=== PATIENT | male | born 1995 | race Caucasian/White ===

== ENCOUNTER 2021-06-23 21:08 | Emergency (ER) | payer BC ==
[2021-06-23] MEDS ORDERED: Sodium Chloride 0.9% 1,000 ML IV ONE (21:35)
[2021-06-23] MEDS ORDERED: Ondansetron 4 MG/2 ML SDV IVPUSH ONE (21:35)
[2021-06-23] MEDS ORDERED: Ondansetron 4 MG/2 ML SDV ONE (21:37)
[2021-06-23 23:45] LABS: CORONAVIRUS COVID-19 NAA NEGATIVE (NEGATIVE)
== END 2021-06-24 00:03 | disposition home or self-care (01) ==
LOC: KA.ED 21:08
DX: R19.7 Diarrhea, unspecified (principal); Z20.822 Contact with and (suspected) exposure to COVID-19
CPT/HCPCS: 0240U; 96374; 99283; 99284-25; J2405; J7030

== ENCOUNTER 2024-10-26 01:43 | Emergency (ER) | payer BC ==
[2024-10-26] MEDS: Lidocaine 2% with EPINEPHrine 1:100,000 20 ML MDV INJECT ONE (02:11)
[2024-10-26] MEDS: Lidocaine 2% with EPINEPHrine 1:100,000 20 ML MDV ONE (02:24)
[2024-10-26] MEDS: Bacitracin/Neomycin/Polymyxin B Oint 0.9 GM U/D Packet TOP ONE (02:44)
[2024-10-26 02:54] VITALS: BP 128/82; PULSE 100
== END 2024-10-26 02:59 | disposition home or self-care (01) ==
LOC: KA.ED 01:43
DX: S01.01XA Laceration without foreign body of scalp, initial encounter (principal); F10.920 Alcohol use, unspecified with intoxication, uncomplicated; F17.200 Nicotine dependence, unspecified, uncomplicated; Z79.899 Other long term (current) drug therapy; Y90.6 Blood alcohol level of 120-199 mg/100 ml; W01.198A Fall on same level from slipping, tripping and stumbling with subsequent striking against other object, initial encounter
CPT/HCPCS: 12002; 36415; 80307; 99283; J2004